=== PATIENT | male | born 1960 | race Caucasian/White ===

== ENCOUNTER → 2024-10-04 14:00 | Outpatient (REF) | payer OTHER, SELFPAY | LOC: DHSLP 14:00 | PROVIDERS: ATTENDING PHYSICIAN Family Medicine | DX: G47.33 Obstructive sleep apnea (adult) (pediatric) (principal); R09.02 Hypoxemia | CPT/HCPCS: 95806 ==

== ENCOUNTER 2024-10-23 06:19 | Day surgery (SDC) | payer OTHER, SELFPAY | END 2024-10-23 10:45 | disposition home or self-care (01) | LOC: GI 06:19 | PROVIDERS: ATTENDING PHYSICIAN Specialist | DX: Z12.11 Encounter for screening for malignant neoplasm of colon (principal); Z86.0100 Personal history of colon polyps, unspecified; Z80.0 Family history of malignant neoplasm of digestive organs | CPT/HCPCS: G0105 ==